=== PATIENT | female | born 1970 | race African-American/Black ===

== ENCOUNTER 2021-04-20 16:33 | Emergency (ER) | payer OTHER ==
[~2021-04-20] VITALS: Ht 167.6 cm; Wt 70.3 kg
[2021-04-20] MEDS ORDERED: LEXAPRO 10 MG T10 M1 PO (16:57)
[2021-04-20] MEDS ORDERED: FLEXERIL PO (17:09)
[2021-04-20] MEDS ORDERED: IBUPROFEN 800800 M1 PO (17:09)
[2021-04-20] MEDS ORDERED: OXAYDO5 MG PO (17:58)
[2021-04-20 18:14] VITALS: BP 153/103
== END 2021-04-20 18:10 | disposition home or self-care (01) ==
LOC: ER 16:33
DX: S93.402A Sprain of unspecified ligament of left ankle, initial encounter (principal); X50.1XXA Overexertion from prolonged static or awkward postures, initial encounter; Y93.89 Activity, other specified; Y92.89 Other specified places as the place of occurrence of the external cause; Y99.8 Other external cause status